=== PATIENT | female | born 1940 | race Caucasian/White ===

== ENCOUNTER 2018-02-02 20:26 | Emergency (ER) | payer OTHER, MEDICARE ==
[~2018-02-02] VITALS: Ht 157.5 cm; Wt 81.6 kg
[~2018-02-02 20:26] MED LIST: ASPIRIN EC81 M1 PO; COZAAR100 M1 PO; ESCITALOPRAM OX20 MG PO; FLOMAX(MONOGRA0.4 MG PO; FLUTICASONE PRO16 GM NASB; HYDROCODON-ACE1 EAC2 PO; JANUVIA100 M1 PO; LEVOTHYROXINE75 MCG PO; LOSARTAN POTAS100 M1 PO; METFORMIN HCL500 M3 PO; PERCOCET 325 MG1 TA2 PO; REQUIP4 MG PO; SIMVASTATIN40 M1 PO; VITAMIN B-121000 MC3 PO; VITAMIN D2000 UNI1 PO; ZOFRAN4 M1 PO
[2018-02-02 20:32] VITALS: BP 166/82
== END 2018-02-02 23:05 | disposition admitted as inpatient to this hospital (09) ==
LOC: ERH 20:26
DX: M54.5 Low back pain (principal); R10.9 Unspecified abdominal pain